=== PATIENT | female | born 1990 | race Caucasian/White ===

== ENCOUNTER 2023-05-29 10:10 | Outpatient (RCR) | payer OTHER, BC, SELFPAY | END 2023-06-05 23:59 | disposition home or self-care (01) | LOC: SST 10:10 | PROVIDERS: PCP Family Medicine; Visit Provider Family Medicine | DX: I69.319 Unspecified symptoms and signs involving cognitive functions following cerebral infarction (principal); I69.920 Aphasia following unspecified cerebrovascular disease | CPT/HCPCS: 92523 ==